=== PATIENT | male | born 1990 | race African-American/Black ===

== ENCOUNTER 2017-02-04 12:33 | Emergency (ER) | payer OTHER | END 2017-02-04 15:23 | disposition home or self-care (01) | LOC: FER 12:33 | DX: S22.088A Other fracture of T11-T12 vertebra, initial encounter for closed fracture (principal); F17.210 Nicotine dependence, cigarettes, uncomplicated; X50.0XXA Overexertion from strenuous movement or load, initial encounter | CPT/HCPCS: 72072; 72100; J1885 ==